=== PATIENT | male | born 1970 | race Caucasian/White ===

== ENCOUNTER → 2024-11-09 | Day surgery (SDC) | payer OTHER ==
[~2024-11-09] MED LIST: Lactated Ringers 1,000 ML IV SCH; Midazolam 1 MG/ML 2 ML SDV ONE; Propofol 200 MG/20 ML SDV ONE; fentaNYL 50 MCG/ML SDV ONE
[2024-11-09] MEDS: Lactated Ringers 1,000 ML IV SCH (08:15)
== END ==
LOC: CC.SDS 07:51
PROVIDERS: ATTEND Family Medicine
DX: Z12.11 Encounter for screening for malignant neoplasm of colon (principal); D12.8 Benign neoplasm of rectum; K29.50 Unspecified chronic gastritis without bleeding; K21.9 Gastro-esophageal reflux disease without esophagitis; R13.10 Dysphagia, unspecified; K57.30 Diverticulosis of large intestine without perforation or abscess without bleeding; E11.9 Type 2 diabetes mellitus without complications; M06.9 Rheumatoid arthritis, unspecified; Z79.84 Long term (current) use of oral hypoglycemic drugs; Z79.899 Other long term (current) drug therapy
CPT/HCPCS: 00813; 87081; J2250; J2704; J3010; J7120

== ENCOUNTER 2025-06-05 09:02 | Day surgery (SDC) | payer OTHER ==
[2025-06-05] MEDS: Lactated Ringers 1,000 ML IV SCH (09:10)
== END 2025-06-05 10:35 | disposition home or self-care (01) ==
LOC: CC.SDS 09:02
PROVIDERS: ATTEND Family Medicine
DX: Z12.11 Encounter for screening for malignant neoplasm of colon (principal); K57.30 Diverticulosis of large intestine without perforation or abscess without bleeding; K21.9 Gastro-esophageal reflux disease without esophagitis; E11.65 Type 2 diabetes mellitus with hyperglycemia; Z86.0100 Personal history of colon polyps, unspecified; Z79.84 Long term (current) use of oral hypoglycemic drugs; Z79.899 Other long term (current) drug therapy
CPT/HCPCS: 45378; J7120